=== PATIENT | female | born 1960 | race Caucasian/White ===

== ENCOUNTER 2021-05-09 09:29 | Inpatient (IN) | payer OTHER ==
[2021-05-09 11:00] VITALS: BMI 22.2
[2021-05-09] MEDS ORDERED: MAG HYDROX/AL HYDROX/SIMETH 30 ML UNIT-DOSE CUP PO PRN (11:08)
[2021-05-09] MEDS ORDERED: ACETAMINOPHEN 325 MG TABLET (FP) PO PRN ×2 (11:08)
[2021-05-09] MEDS ORDERED: MAGNESIUM CITRATE 300 ML BOTTLE PO PRN (11:08)
[2021-05-09] MEDS ORDERED: IBUPROFEN 400 MG TABLET (FP) PO PRN (11:08)
[2021-05-09] MEDS ORDERED: MAGNESIUM HYDROX 2400MG/30ML ORAL SUSPENSION 30 ML CUP PO PRN (11:08)
[2021-05-09] MEDS ORDERED: BISMUTH SUBSALICYLATE 262 MG/15 ML BTL PO PRN (11:08)
[2021-05-09] MEDS ORDERED: ONDANSETRON *ODT* 4 MG TABLET SL PRN (11:08)
[2021-05-09] MEDS ORDERED: MENTHOL/PHENOL 1 EACH UD MM PRN (11:08)
[2021-05-09] MEDS: diazePAM 5 MG TABLET PO SCH ×3 (13:04→22:08)
[2021-05-09] MEDS: METHOCARBAMOL 500 MG TABLET PO PRN (13:04)
[2021-05-09] MEDS: hydrOXYzine PAMOATE 25 MG CAPSULE (FP) PO SCH ×3 (13:04→22:45)
[2021-05-09] MEDS: PRENATAL VITAMINS W/ FOLIC ACID TABLET (FP) PO SCH (13:06)
[2021-05-09] MEDS: NICOTINE 10 MG CARTRIDGE (INHALER) IH PRN (13:08)
[2021-05-09 14:55] LABS: HEMATOCRIT 42.4 % (32.4-45.2); HEMOGLOBIN 14.6 GM/dL (10.7-15.3); MCHC 34.4 g/dl (32.0-36.0); MEAN CELL VOLUME 95.9 fl (80-96); MEAN PLT VOLUME 8.8 fl (7.5-11.1); PLATELET COUNT 226 10^3/uL (134-434); RBC 4.41 M/mm3 (3.60-5.2); RDW 14.2 % (11.6-15.6); WHITE BLOOD COUNT 6.7 K/mm3 (4.0-10.0)
[2021-05-09 15:16] LABS: ALBUMIN 4.5 g/dl (3.4-5.0)
[2021-05-09 15:17] LABS: BLOOD UREA NITROGEN 15.6 mg/dL (7-18)
[2021-05-09 15:18] LABS: CALCIUM 9.4 mg/dL (8.5-10.1)
[2021-05-09 15:22] LABS: BILIRUBIN,TOTAL 0.5 mg/dL (0.2-1); TOT PROT 8.5 g/dl (6.4-8.2)
[2021-05-09 15:51] LABS: HIV INTERPRETATION NEGATIVE (NEGATIVE)
[2021-05-09] MEDS: GABAPENTIN 400 MG CAPSULE PO SCH (22:07)
[2021-05-09] MEDS: THIAMINE HCL 100 MG TABLET (FP) PO SCH (22:08)
[2021-05-09] MEDS: traZODone HCL 100 MG TABLET (FP) PO SCH (22:08)
[2021-05-09] MEDS: MELATONIN 5 MG TABLETS PO SCH (22:45)
[2021-05-10] MEDS: GABAPENTIN 400 MG CAPSULE PO SCH ×3 (06:06→22:15)
[2021-05-10] MEDS: hydrOXYzine PAMOATE 25 MG CAPSULE (FP) PO SCH ×5 (06:06→22:16)
[2021-05-10] MEDS: diazePAM 5 MG TABLET PO SCH ×4 (06:06→22:16)
[2021-05-10] MEDS ORDERED: METHOCARBAMOL 750 MG TAB PO ONE (09:45)
[2021-05-10] MEDS: METHOCARBAMOL 500 MG TABLET PO PRN (10:22)
[2021-05-10] MEDS: VENLAFAXINE HCL 75 MG E.R. CAPSULES PO SCH (10:22)
[2021-05-10] MEDS: PRENATAL VITAMINS W/ FOLIC ACID TABLET (FP) PO SCH (10:22)
[2021-05-10] MEDS: TRIAMCINOLONE ACET 0.1% OINT 15 GM TUBE TP SCH ×3 (13:39→22:18)
[2021-05-10] MEDS: NICOTINE 10 MG CARTRIDGE (INHALER) IH PRN (17:18)
[2021-05-10] MEDS: traZODone HCL 100 MG TABLET (FP) PO SCH (22:15)
[2021-05-10] MEDS: THIAMINE HCL 100 MG TABLET (FP) PO SCH (22:15)
[2021-05-10] MEDS: MELATONIN 5 MG TABLETS PO SCH (22:15)
[2021-05-11] MEDS: GABAPENTIN 400 MG CAPSULE PO SCH ×3 (05:12→22:27)
[2021-05-11] MEDS: hydrOXYzine PAMOATE 25 MG CAPSULE (FP) PO SCH ×5 (05:12→22:27)
[2021-05-11] MEDS: diazePAM 5 MG TABLET PO SCH ×3 (05:12→22:27)
[2021-05-11] MEDS: PRENATAL VITAMINS W/ FOLIC ACID TABLET (FP) PO SCH (10:20)
[2021-05-11] MEDS: VENLAFAXINE HCL 75 MG E.R. CAPSULES PO SCH (10:20)
[2021-05-11] MEDS: TRIAMCINOLONE ACET 0.1% OINT 15 GM TUBE TP SCH ×4 (10:20→22:31)
[2021-05-11] MEDS: diazePAM 5 MG TABLET PO PRN ×2 (10:21→17:18)
[2021-05-11] MEDS: traZODone HCL 100 MG TABLET (FP) PO SCH (22:27)
[2021-05-11] MEDS: THIAMINE HCL 100 MG TABLET (FP) PO SCH (22:27)
[2021-05-11] MEDS: MELATONIN 5 MG TABLETS PO SCH (22:32)
[2021-05-12] MEDS: hydrOXYzine PAMOATE 25 MG CAPSULE (FP) PO SCH ×5 (05:51→22:13)
[2021-05-12] MEDS: GABAPENTIN 400 MG CAPSULE PO SCH ×3 (05:51→22:13)
[2021-05-12] MEDS: diazePAM 5 MG TABLET PO SCH ×2 (05:52→17:29)
[2021-05-12] MEDS: NICOTINE 10 MG CARTRIDGE (INHALER) IH PRN (05:54)
[2021-05-12] MEDS: diazePAM 5 MG TABLET PO PRN (10:19)
[2021-05-12] MEDS: VENLAFAXINE HCL 75 MG E.R. CAPSULES PO SCH (10:19)
[2021-05-12] MEDS: PRENATAL VITAMINS W/ FOLIC ACID TABLET (FP) PO SCH (10:19)
[2021-05-12] MEDS: TRIAMCINOLONE ACET 0.1% OINT 15 GM TUBE TP SCH ×4 (10:19→22:15)
[2021-05-12] MEDS: THIAMINE HCL 100 MG TABLET (FP) PO SCH (22:12)
[2021-05-12] MEDS: MELATONIN 5 MG TABLETS PO SCH (22:13)
[2021-05-12] MEDS: traZODone HCL 100 MG TABLET (FP) PO SCH (22:13)
[2021-05-13] MEDS ORDERED: diazePAM 5 MG TABLET PO ONE (06:00)
[2021-05-13] MEDS: GABAPENTIN 400 MG CAPSULE PO SCH (06:23)
[2021-05-13] MEDS: hydrOXYzine PAMOATE 25 MG CAPSULE (FP) PO SCH ×2 (06:23→10:01)
[2021-05-13 09:44] VITALS: BP 89/55; PULSE 65; TEMP 96.8
[2021-05-13] MEDS: PRENATAL VITAMINS W/ FOLIC ACID TABLET (FP) PO SCH (10:01)
[2021-05-13] MEDS: VENLAFAXINE HCL 75 MG E.R. CAPSULES PO SCH (10:01)
[2021-05-13] MEDS: TRIAMCINOLONE ACET 0.1% OINT 15 GM TUBE TP SCH (10:01)
[2021-05-13] MEDS: NICOTINE 10 MG CARTRIDGE (INHALER) IH PRN (10:02)
== END 2021-05-13 12:23 | disposition home or self-care (01) | DRG 775 ==
LOC: YASAS 09:29 → Y6N 11:32
PROVIDERS: ADMIT Allergy & Immunology; ATTEND Allergy & Immunology
PROC: HZ2ZZZZ Detoxification Services for Substance Abuse Treatment (ICD-10-PCS; principal; 2021-05-09)
DX: F10.230 Alcohol dependence with withdrawal, uncomplicated (principal); F10.282 Alcohol dependence with alcohol-induced sleep disorder; F17.210 Nicotine dependence, cigarettes, uncomplicated; F41.9 Anxiety disorder, unspecified; F32.9 Major depressive disorder, single episode, unspecified; L40.9 Psoriasis, unspecified; Z86.19 Personal history of other infectious and parasitic diseases; Z62.810 Personal history of physical and sexual abuse in childhood; Z56.0 Unemployment, unspecified
CPT/HCPCS: 36415; 80053; 85027; 86780; 87389; 93005; 93010; C9803; U0003; U0005